=== PATIENT | male | born 1945 | race Hispanic/Latino ===

== ENCOUNTER 2021-05-13 04:36 | Emergency (ER) | payer MEDICARE ==
[~2021-05-13] VITALS: Ht 162.6 cm; Wt 59.0 kg
[~2021-05-13 04:36] MED LIST: ADVAIR IH; ALLERGY INJECTION SQ; CETI10CA5 PO; CHOL100053 PO
[2021-05-13 05:07] LABS: APPEARANCE,URINE Clear (CLEAR); BILIRUBIN,URINE Negative (NEGATIVE); COLOR,URINE Yellow (YELLOW); GLUCOSE, URINE (UA) Negative (NEGATIVE); KETONES,URINE >=80 mg/dL (NEGATIVE); LEUKOCYTE ESTERASE ,URINE Negative (NEGATIVE); NITRATE,URINE Negative (NEGATIVE); OCCULT BLOOD,URINE Small (NEGATIVE); PROTEIN,URINE Negative (NEGATIVE)
[2021-05-13 05:16] LABS: BASOPHILS % (AUTO) 0.1 % (0.0-5.0); EOSINOPHILS % (AUTO) 0.2 % (0.0-8.0); HEMATOCRIT 42.2 % (42-54); LYMPHOCYTES % (AUTO) 9.6 % (21.0-51.0); MEAN CORPUSCULAR HEMOGLOBIN 31.1 pg (27.0-33.0); MEAN CORPUSCULAR HGB CONC 34.6 g/dL (32.0-36.0); MONOCYTES % (AUTO) 8.1 % (3.0-13.0); NEUTROPHILS % (AUTO) 81.7 % (40.0-77.0); PLATELET COUNT (AUTO) 236 K/uL (130-400); RED BLOOD CELL COUNT(AUTO) 4.69 MIL/uL (4.50-6.20); RED CELL DISTRIBUTION WIDTH 12.6 % (11.0-15.5); WHITE BLOOD COUNT (AUTO) 10.2 K/uL (4.8-10.8)
[2021-05-13 05:19] LABS: CREATININE 1.4 mg/dL (0.5-1.5); POTASSIUM 3.8 mmol/L (3.5-5.1)
[2021-05-13 05:24] LABS: ALBUMIN 3.6 g/dL (3.5-5.0); BILIRUBIN,TOTAL 1.5 mg/dL (0.2-1.0); TOTAL PROTEIN, SERUM 7.1 g/dL (6.0-8.3)
[2021-05-13 06:07] LABS: BACTERIA,URINE Rare /HPF (None Seen); RBC,URINE 0-1 /HPF (0-1); WBC,URINE 0-1 /HPF (0-1)
[2021-05-13 06:08] LABS: MUCUS,URINE Few LPF (None Seen); SQUAMOUS EPITHELIAL CELL,UR 0-2 /HPF (0-2)
[2021-05-13] MEDS ORDERED: METRONIDAZOLE 500 MG TABLET PO SCH (07:00)
[2021-05-13] MEDS ORDERED: MORPHINE 4 MG SYG IV ONE (07:00)
[2021-05-13] MEDS ORDERED: LEVOFLOXACIN 500 MG/D5W 100 ML 100 ML IV SCH (07:00)
[2021-05-13] MEDS ORDERED: ONDANSETRON 4MG INJ IVP ONE (07:00)
[2021-05-13 07:21] VITALS: BP 129/63
[2021-05-13] MEDS ORDERED: TAMS-1 PO (08:33)
[2021-05-13] MEDS ORDERED: KETO10 PO (08:33)
[2021-05-13] MEDS ORDERED: CEPH250 PO (08:33)
== END 2021-05-13 08:45 | disposition home or self-care (01) ==
LOC: EDH 04:36
DX: K57.32 Diverticulitis of large intestine without perforation or abscess without bleeding (principal); N20.0 Calculus of kidney; Z79.899 Other long term (current) drug therapy; Z98.890 Other specified postprocedural states
CPT/HCPCS: 36415; 71045; 74176; 80053; 81001; 84484; 85025; 96365; 96366; 96375; 99285; J1956; J2270; J2405

== ENCOUNTER 2021-06-17 15:00 | Day surgery (SDC) | payer MEDICARE ==
[2021-06-12 12:18] LABS: BASOPHILS % (AUTO) 0.8 % (0.0-5.0); EOSINOPHILS % (AUTO) 7.6 % (0.0-8.0); HEMATOCRIT 43.9 % (42-54); LYMPHOCYTES % (AUTO) 30.3 % (21.0-51.0); MEAN CORPUSCULAR HGB CONC 33.3 g/dL (32.0-36.0); MEAN CORPUSCULAR VOLUME 93.2 fL (79-99); MONOCYTES % (AUTO) 9.7 % (3.0-13.0); NEUTROPHILS % (AUTO) 51.4 % (40.0-77.0); PLATELET COUNT (AUTO) 230 K/uL (130-400); RED BLOOD CELL COUNT(AUTO) 4.71 MIL/uL (4.50-6.20); RED CELL DISTRIBUTION WIDTH 12.5 % (11.0-15.5); WHITE BLOOD COUNT (AUTO) 4.9 K/uL (4.8-10.8)
[2021-06-12 12:32] LABS: INR 0.99 (0.85-1.15); PROTHROMBIN TIME 10.8 SEC (9.6-11.6)
[2021-06-12 12:34] LABS: PARTIAL THROMBOPLASTIN TIME 27.6 SEC (26.3-35.5)
[2021-06-12 12:49] LABS: POTASSIUM 5.1 mmol/L (3.5-5.1)
[2021-06-14 10:01] VITALS: BP 123/61
[~2021-06-17] VITALS: Ht 165.1 cm; Wt 58.7 kg
[2021-06-17] VITALS (12 sets, daily range): BP systolic 113–151; BP diastolic 55–64
[~2021-06-17 15:00] MED LIST changes: -ADVAIR IH; -ALLERGY INJECTION SQ; +CEFTRIAXONE 1G VIAL IVP ONE; +FLUT9.9S NS; +LATA7.5D OU; +TAMS-1 PO
[2021-06-17] MEDS ORDERED: LACTATED RINGERS 1000ML 1,000 ML IV ONE (15:26)
[2021-06-17] MEDS ORDERED: CEFTRIAXONE 1G VIAL ONE (15:26)
[2021-06-17] MEDS ORDERED: IOHEXOL-350 50ML VIAL IV ONE (16:24)
[2021-06-17] MEDS ORDERED: PROPOFOL 10 MG/ML 20ML VIAL IV ONE (20:16)
[2021-06-17] MEDS ORDERED: LIDOCAINE PF 100MG/5ML (2%) SYRINGE 5ML ONE (20:16)
[2021-06-17] MEDS ORDERED: FENTANYL CITRATE PF 50 MCG/1 ML 2ML VIAL ONE (20:16)
[2021-06-17] MEDS ORDERED: SUCCINYLCHOLINE 200MG/10ML SYR ONE (20:23)
[2021-06-17] MEDS ORDERED: ONDANSETRON 4MG INJ ONE (20:49)
[2021-06-17] MEDS ORDERED: PHENAZOPYRIDINE HCL 200 MG TABLET ONE (21:40)
== END 2021-06-17 21:55 | disposition home or self-care (01) ==
LOC: DAH 15:00
PROVIDERS: ATTEND Urology
DX: N13.2 Hydronephrosis with renal and ureteral calculous obstruction (principal); Z20.822 Contact with and (suspected) exposure to COVID-19; J45.909 Unspecified asthma, uncomplicated; Z98.890 Other specified postprocedural states; Z79.899 Other long term (current) drug therapy; Z79.01 Long term (current) use of anticoagulants
CPT/HCPCS: 36415; 52332; 74420; 80048; 85025; 85610; 85730; 87635; 93005; A4215; A4221; A4222; A4223; A4344; A4358; A4510; A4600; A4663; A5113; A6260; C1726; C1758; C1769; C2617; C9803; J0330; J0696; J2001; J2405; J2704; J3010; J7120; Q9967

== ENCOUNTER 2021-08-12 10:48 | Day surgery (SDC) | payer MEDICARE ==
[2021-08-06 11:22] LABS: BASOPHILS % (AUTO) 0.9 % (0.0-5.0); EOSINOPHILS % (AUTO) 8.6 % (0.0-8.0); HEMATOCRIT 41.5 % (42-54); LYMPHOCYTES % (AUTO) 27.7 % (21.0-51.0); MEAN CORPUSCULAR HEMOGLOBIN 30.9 pg (27.0-33.0); MEAN CORPUSCULAR HGB CONC 34.2 g/dL (32.0-36.0); MEAN CORPUSCULAR VOLUME 90.2 fL (79-99); NEUTROPHILS % (AUTO) 54.6 % (40.0-77.0); PLATELET COUNT (AUTO) 243 K/uL (130-400); RED CELL DISTRIBUTION WIDTH 12.5 % (11.0-15.5); WHITE BLOOD COUNT (AUTO) 5.5 K/uL (4.8-10.8)
[2021-08-06 11:30] LABS: CREATININE 0.9 mg/dL (0.5-1.5); POTASSIUM 5.1 mmol/L (3.5-5.1)
[2021-08-08 09:38] VITALS: BP 144/75
[~2021-08-12] VITALS: Ht 165.1 cm; Wt 58.9 kg
[2021-08-12] VITALS (14 sets, daily range): BP systolic 129–158; BP diastolic 44–73
[~2021-08-12 10:48] MED LIST changes: -CEFTRIAXONE 1G VIAL IVP ONE; +CETI-89 PO; -CETI10CA5 PO; -CHOL100053 PO; +CHOL500050 PO; +FLUT1AER IH; +POLY17PO4 PO; -TAMS-1 PO
[2021-08-12] MEDS ORDERED: LACTATED RINGERS 1000ML 1,000 ML IV ONE (11:31)
[2021-08-12] MEDS: CEFTRIAXONE 1G VIAL IVP SCH ×2 (11:54→15:00)
[2021-08-12] MEDS ORDERED: IOHEXOL-350 50ML VIAL IV ONE (12:27)
[2021-08-12] MEDS ORDERED: PROPOFOL 10 MG/ML 20ML VIAL IV ONE (14:24)
[2021-08-12] MEDS ORDERED: LIDOCAINE PF 100MG/5ML (2%) SYRINGE 5ML ONE (14:24)
[2021-08-12] MEDS ORDERED: FENTANYL CITRATE PF 50 MCG/1 ML 2ML VIAL ONE (14:24)
[2021-08-12] MEDS ORDERED: GLYCOPYRROLATE 1 MG/5 ML SYRINGE ONE (15:08)
[2021-08-12] MEDS ORDERED: MEPERIDINE-PF 25 MG/ML SYG ONE (17:19)
[2021-08-12] MEDS ORDERED: PHENAZOPYRIDINE HCL 200 MG TABLET ONE (17:28)
== END 2021-08-12 18:11 | disposition home or self-care (01) ==
LOC: DAH 10:48
PROVIDERS: ATTEND Urology
DX: N13.2 Hydronephrosis with renal and ureteral calculous obstruction (principal); Z20.822 Contact with and (suspected) exposure to COVID-19; N13.1 Hydronephrosis with ureteral stricture, not elsewhere classified; J45.909 Unspecified asthma, uncomplicated; Z90.79 Acquired absence of other genital organ(s); Z98.890 Other specified postprocedural states; Z79.899 Other long term (current) drug therapy
CPT/HCPCS: 36415 ×2; 52356; 74018; 80048; 82360; 85025; 87635; 93005; A4215; A4221; A4222; A4223; A4344; A4358; A4510; A4600; A4663; A5113; A6260; C1726; C1758; C1769; C2617; C9803; J0696; J2001; J2175; J2704; J3010; J3490; J7120; Q9967

== ENCOUNTER 2024-02-12 13:28 | Emergency (ER) | payer MEDICARE ==
[~2024-02-12] VITALS: Ht 165.1 cm; Wt 59.0 kg
[2024-02-12 14:11] LABS: BASOPHILS # (AUTO) 0.04 K/uL (0.00-0.20); BASOPHILS % (AUTO) 0.4 % (0.0-5.0); EOSINOPHILS # (AUTO) 0.16 K/uL (0.00-0.70); EOSINOPHILS % (AUTO) 1.6 % (0.0-8.0); HEMATOCRIT 39.7 % (42-54); IMMATURE GRANULOCYTE ABSOLUTE 0.03 K/uL (0-1); LYMPHOCYTES # (AUTO) 1.3 K/uL (1.0-4.8); LYMPHOCYTES % (AUTO) 13.5 % (21.0-51.0); MEAN CORPUSCULAR HEMOGLOBIN 31.6 pg (27.0-33.0); MEAN CORPUSCULAR HGB CONC 34.8 g/dL (32.0-36.0); MEAN CORPUSCULAR VOLUME 90.8 fL (79-99); MONOCYTES % (AUTO) 10.2 % (3.0-13.0); NEUTROPHILS # (AUTO) 7.3 K/uL (1.8-7.7); PLATELET COUNT (AUTO) 219 K/uL (130-400); RED BLOOD CELL COUNT(AUTO) 4.37 MIL/uL (4.50-6.20); RED CELL DISTRIBUTION WIDTH 12.6 % (11.0-15.5); WHITE BLOOD COUNT (AUTO) 9.8 K/uL (4.8-10.8)
[2024-02-12 14:18] LABS: SARS-CoV-2, RNA, NAAT NEGATIVE SARS CoV-2 (NEGATIVE)
[2024-02-12 14:21] LABS: INFLUENZA TYPE A Negative For Type A (NEGATIVE); INFLUENZA TYPE B Negative For Type B (NEGATIVE)
[2024-02-12 14:57] LABS: ALBUMIN 3.5 g/dL (3.5-5.0); BILIRUBIN,DIRECT 0.3 mg/dL (0.0-0.3); BILIRUBIN,TOTAL 1.7 mg/dL (0.2-1.0); CREATININE 0.9 mg/dL (0.5-1.3); POTASSIUM 3.9 mmol/L (3.5-5.1); TOTAL PROTEIN, SERUM 7.2 g/dL (6.0-8.3)
[2024-02-12] MEDS: CEFTRIAXONE 2GM VIAL IVPB ONE (15:53)
[2024-02-12] MEDS: 0.9%NACL 1000ML 1,000 ML IV ONE (15:53)
[2024-02-12 16:03] LABS: APPEARANCE,URINE CLEAR (CLEAR); BILIRUBIN,URINE NEGATIVE (NEGATIVE); COLOR,URINE LIGHT-YELLOW (YELLOW); GLUCOSE, URINE (UA) NEGATIVE (NEGATIVE); KETONES,URINE NEGATIVE (NEGATIVE); LEUKOCYTE ESTERASE ,URINE NEGATIVE Leu/uL (NEGATIVE); NITRATE,URINE NEGATIVE (NEGATIVE); PH,URINE 5.5 (5.0-8.0); PROTEIN,URINE NEGATIVE (NEGATIVE); UROBILINOGEN,URINE 0.2 mg/dL (0.2-1.0)
[2024-02-12 16:04] LABS: ADD UA MICROSCOPIC YES; MUCUS,URINE RARE LPF (None Seen); SQUAMOUS EPITHELIAL CELL,UR RARE /HPF (0-2); WBC,URINE 0-1 /HPF (0-1)
[2024-02-12] MEDS ORDERED: DOXY100C5 PO (17:15)
[2024-02-12] MEDS ORDERED: ONDA-243 PO (17:15)
[2024-02-12 17:25] VITALS: BP 132/62; PULSE 84; RESP 16; O2SAT 95
== END 2024-02-12 17:30 | disposition home or self-care (01) ==
LOC: EDH 13:28
DX: R50.9 Fever, unspecified (principal); E86.0 Dehydration; Z79.51 Long term (current) use of inhaled steroids; Z85.46 Personal history of malignant neoplasm of prostate; Z90.79 Acquired absence of other genital organ(s); Z20.822 Contact with and (suspected) exposure to COVID-19
CPT/HCPCS: 99285; 96365; 71045; 87635; 96366; 80076; 84484; 80048; 85025; 87040 ×2; 87804 ×2; 83605; 81001; 36415; 93005; J7030; J0696